=== PATIENT | female | born 1945 | race Two or more races ===

== ENCOUNTER 2021-11-13 17:45 | Inpatient (IN) | payer OTHER ==
[~2021-11-13] VITALS: Ht 162.6 cm; Wt 64.0 kg
[2021-11-13] MEDS ORDERED: VASOTEC20 MG (18:32)
[2021-11-13] MEDS ORDERED: ATORVASTATIN CA10 MG (18:32)
[2021-11-13] MEDS ORDERED: CALCITRIOL0.25 MCG (18:33)
[2021-11-17] MEDS ORDERED: VENLAFAXINE HC150 MG (09:48)
[2021-11-17] MEDS ORDERED: LEVOTHYROXINE88 MCG (09:48)
[2021-11-17] MEDS ORDERED: TRUSOPT10 ML (09:48)
[2021-11-17] MEDS ORDERED: TRAVATAN Z5 ML (09:48)
[2021-11-17] MEDS ORDERED: DILTIAZEM 24HR180 MG (09:48)
[2021-11-17] MEDS ORDERED: LATANOPROST2.5 ML (09:49)
[2021-11-28] MEDS ORDERED: PROTEINEX-18 LI30 ML PO (15:05)
[2021-11-28] MEDS ORDERED: CARdura 2MG TABLET PO (15:05)
[2021-11-28] MEDS ORDERED: THIAMINE HCL100 MG PO (15:05)
[2021-11-28] MEDS ORDERED: B Complex CAPSULE PO (15:05)
[2021-11-28] MEDS ORDERED: POTASSIUM CHLO20 ME1 PO (15:05)
[2021-11-28] MEDS ORDERED: CARAFATE1 GM PO (15:05)
[2021-11-28] MEDS ORDERED: Neurin-Sl Tablet Sl SL (15:05)
[2021-11-28] MEDS ORDERED: DILTIAZEM 24HR180 MG PO (15:05)
[2021-11-28] MEDS ORDERED: ATORVASTATIN CA10 MG PO (15:05)
[2021-11-28] MEDS ORDERED: POM (MEDICAMENTO EN OP (15:05)
[2021-11-28] MEDS ORDERED: ROCALTROL0.25 MCG PO (15:05)
[2021-11-28] MEDS ORDERED: SYNTHROID100 MCG PO (15:05)
== END 2021-11-28 17:59 | disposition home or self-care (01) | DRG 682 ==
LOC: ER 17:45 → SEC-K 11-14 13:52 → MEDI 11-14 13:52
PROVIDERS: ADMIT Internal Medicine; ATTEND Internal Medicine
PROC: BW28ZZZ Computerized Tomography (CT Scan) of Head (ICD-10-PCS; 2021-11-20)
PROC: 30233N1 Transfusion of Nonautologous Red Blood Cells into Peripheral Vein, Percutaneous Approach (ICD-10-PCS; principal; 2021-11-22)
PROC: BF37ZZZ Magnetic Resonance Imaging (MRI) of Pancreas (ICD-10-PCS; 2021-11-24)
DX: N17.8 Other acute kidney failure (principal); K85.90 Acute pancreatitis without necrosis or infection, unspecified; G93.41 Metabolic encephalopathy; N39.0 Urinary tract infection, site not specified; N18.9 Chronic kidney disease, unspecified; K57.30 Diverticulosis of large intestine without perforation or abscess without bleeding; D64.9 Anemia, unspecified; R10.11 Right upper quadrant pain; E87.6 Hypokalemia; E86.0 Dehydration; E87.8 Other disorders of electrolyte and fluid balance, not elsewhere classified; D72.825 Bandemia; D72.828 Other elevated white blood cell count; E03.8 Other specified hypothyroidism; M35.00 Sjogren syndrome, unspecified; E78.49 Other hyperlipidemia; Z20.822 Contact with and (suspected) exposure to COVID-19; F43.20 Adjustment disorder, unspecified; F03.90 Unspecified dementia, unspecified severity, without behavioral disturbance, psychotic disturbance, mood disturbance, and anxiety; I12.9 Hypertensive chronic kidney disease with stage 1 through stage 4 chronic kidney disease, or unspecified chronic kidney disease; H40.89 Other specified glaucoma; F43.23 Adjustment disorder with mixed anxiety and depressed mood